=== PATIENT | male | born 1970 | race Caucasian/White ===

== ENCOUNTER 2023-03-31 10:35 | Emergency (ER) | payer OTHER, MEDICAID, SELFPAY ==
--- NOTE | 2023-03-31 10:40 | DI.RAD.S_ITS ---
PROCEDURE: XR HAND RT MIN 3V INDICATIONS: Trauma, pain TECHNIQUE: 3 views of the hand(s) acquired. COMPARISON: None. FINDINGS: Bones: Oblique fracture through the 2nd metacarpal diaphysis with volar displacement and associated soft tissue swelling. Carpal bones are normally aligned. No suspicious bony lesions. DIP arthritic changes. Soft tissues: No suspicious soft tissue calcifications. IMPRESSION: Second metacarpal displaced fracture Approved by: Trev Cosme M.D. on 03/31/2023 at 11:39
[2023-03-31 10:41] VITALS: BP 146/84; PULSE 82; RESP 18; TEMP 36.4; O2SAT 96; BMI 24.3
--- NOTE | 2023-03-31 10:41 | DI.RAD.S_ITS ---
PROCEDURE: XR WRIST RT MIN 3V INDICATIONS: Trauma, pain TECHNIQUE: 4 views of the wrist were acquired. COMPARISON: None. FINDINGS: Bones: Displaced 2nd metacarpal. No intrinsic wrist fracture. Soft tissues: No suspicious soft tissue calcifications. IMPRESSION: Displaced 2nd metacarpal fracture. No intrinsic fracture in the wrist Approved by: Trev Cosme M.D. on 03/31/2023 at 11:43
--- NOTE | 2023-03-31 10:46 | ED.UPPEXIN ---
HPI - Extremity Injury (Upper) General Chief Complaint: Extremity Injury, Upper Stated Complaint: fit for care home Time Seen by Provider: 03/31/23 10:39 Source: patient and police Mode of arrival: Ambulatory History of Present Illness HPI narrative: 53-year-old male presents for evaluation prior to going to care home. Patient fell several feet and hit a metal railing. Reports right rib pain, right hand and wrist pain. Denies other injuries. Patient verbally abusive to staff, yelling at Law enforcement Related Data Allergies Allergy/AdvReac Type Severity Reaction Status Date / Time codeine Allergy Verified 03/31/23 10:41 Review of Systems Review of Systems Narrative: Otherwise negative Patient History Social History Smoking Status: Current every day smoker Smoking Status: Current every day smoker tobacco type: pipe alcohol intake frequency: 0-2 drinks per day Substance Use Type: does not use Exam Initial Vital Signs Initial Vital Signs: Vital Signs Temperature 97.6 F 03/31/23 10:41 Pulse Rate 82 03/31/23 10:41 Respiratory Rate 18 03/31/23 10:41 Blood Pressure 146/84 H 03/31/23 10:41 Pulse Oximetry 96 03/31/23 10:41 Oxygen Delivery Method Room Air 03/31/23 10:41 Const: Awake, alert, appears older than stated age Eyes: PERRL, EOMI, conjunctiva normal ENT: Atraumatic, dentition normal, mucous membranes moist MSK: Somewhat limited as patient is in handcuffs, able to wiggle fingers, sensation intact and equal Skin: Warm, Dry, intact Neuro: AO x3, CN II-XII grossly intact, moves all extremities Course Orders Ordered: ED Orders 03/31/23 10:40 XR hand RT min 3V Stat 03/31/23 10:41 XR wrist RT min 3V Stat 03/31/23 10:48 XR ribs RT 2V Stat Vital Signs Vital signs: Vital Signs - 8 hr 03/31/23 10:41 03/31/23 10:52 03/31/23 10:55 Temperature 97.6 F Pulse Rate 82 82 Pulse Rate [Right Radial] 82 Respiratory Rate 18 20 Blood Pressure 146/84 H Pulse Oximetry 96 97 Oxygen Delivery Method Room Air Room Air 03/31/23 11:24 03/31/23 12:38 Temperature Pulse Rate 80 78 Pulse Rate [Right Radial] Respiratory Rate 18 18 Blood Pressure Pulse Oximetry 97 97 Oxygen Delivery Method Room Air Room Air MDM - Extremity Injury (Upper) MDM Narrative Medical decision making narrative: Right hand/wrist pain and right rib pain after injury. Neurovascularly intact, able to wiggle fingers and has intact sensation. X-rays show 2nd metacarpal fracture with mild displacement, no reproducible defect. X-ray report read as no displaced fracture, I do feel as though there is a mildly displaced fracture of the lower rib, no pneumothorax. Patient placed in a radial gutter splint, referred to orthopedics. Discharge Plan Departure Patient Disposition: Home Clinical Impression: Fracture of metacarpal, Closed rib fracture Instructions: DI for a Hand Fracture Activity Restrictions/Additional Instructions: Patient fit for care home. Tylenol, motrin, ice as needed for pain. Keep elevated to decrease swelling. Make sure to take deep breaths to avoid developing pneumonia Referrals: Carter Rosen MD [Physician] - Stand Alone Forms: Patient Portal/API
--- NOTE | 2023-03-31 10:48 | DI.RAD.S_ITS ---
PROCEDURE: XR RIBS RT 2V INDICATIONS: Fell onto railing, R rib pain TECHNIQUE: 2 views of the ribs were acquired. COMPARISON: None. FINDINGS: Surgical changes and devices: None. Bones and chest wall: No fractures or dislocations. No suspicious bony lesions. Overlying soft tissues appear unremarkable. Lungs and pleura: The visualized lung appears clear. No pleural effusions or pneumothorax are visible. IMPRESSION: No displaced rib fracture. Dictated by: Trev Cosme M.D. on 03/31/2023 at 11:43 Approved by: Trev Cosme M.D. on 03/31/2023 at 11:49
[2023-03-31 10:52] VITALS: PULSE 82
[2023-03-31 10:55] VITALS: PULSE 82; RESP 20; O2SAT 97
[2023-03-31 11:24] VITALS: PULSE 80; RESP 18; O2SAT 97
[2023-03-31 12:38] VITALS: PULSE 78; RESP 18; O2SAT 97
--- NOTE | 2023-03-31 12:51 | PC.NURSE ---
Pt in custody, [employer]. Officer at bedside.
== END 2023-03-31 12:53 | disposition home or self-care (01) ==
LOC: ED 12:32
PROVIDERS: Emergency Provider Emergency Medicine
DX: Z00.8 Encounter for other general examination (principal); S62.300A Unspecified fracture of second metacarpal bone, right hand, initial encounter for closed fracture; S22.31XA Fracture of one rib, right side, initial encounter for closed fracture; W17.89XA Other fall from one level to another, initial encounter
CPT/HCPCS: 29125; 29550; 71100; 73110; 73130; 99284